=== PATIENT | female | born 1945 ===

== ENCOUNTER 2017-05-30 08:45 | Inpatient (IN) | payer MEDICARE, OTHER ==
[2017-05-30 08:49] VITALS: BMI 20.5
[2017-05-30 10:16] LABS: BASO # 0.1 K/uL (0.0-0.2); BASO % 0.6 % (0.0-2.0); EOS # 0.2 K/uL (0.0-0.7); EOS % 2.8 % (0.0-4.0); HEMATOCRIT 45.2 % (34.0-47.0); LYMPH # 2.2 K/uL (1.0-4.3); LYMPH % 25.9 % (20.0-40.0); MEAN CELL VOLUME 97.3 fl (81.0-99.0); MEAN CORPUSCULAR HGB CONC 33.9 g/dL (33.0-37.0); MEAN PLATELET VOLUME 10.2 fl (7.2-11.7); MONO # 1.1 K/uL (0.0-0.8); MONO % 12.8 % (0.0-10.0); NEUT # 4.9 K/uL (1.8-7.0); NEUT % 57.9 % (50.0-75.0); NRBC % 0.1 % (0.0-0.0); RED CELL DISTRIBUTION WIDTH 13.8 % (11.5-14.5); WHITE BLOOD COUNT 8.5 K/uL (4.8-10.8)
[2017-05-30 10:25] LABS: ALB/GLOB RATIO 1.3 (1.0-2.1); ALCOHOL SERUM < 10 mg/dl (0-10); ALKALINE PHOSPHATASE 68 U/L (38-126); ALT/SGPT 83 U/L (9-52); AST/SGOT 92 U/L (14-36); BILIRUBIN,TOTAL 0.7 mg/dl (0.2-1.3); BLOOD UREA NITROGEN 18 mg/dl (7-17); CALCIUM 9.5 mg/dL (8.4-10.2); CARBON DIOXIDE 27 mmol/L (22-30); CHLORIDE 102 mmol/L (98-107); GFR AFRICAN-AMERICAN > 60; GLUCOSE,RANDOM 81 mg/dL (65-105); POTASSIUM 4.4 MMOL/L (3.6-5.0); SODIUM 141 mmol/l (132-148); TOTAL PROTEIN 7.4 G/DL (6.3-8.2)
[2017-05-30] MEDS ORDERED: Alum-Mag Hydrox-Simethicone Susp (30 mL) PO PRN (13:29)
[2017-05-30] MEDS ORDERED: Magnesium Hydroxide Susp 30 ml UD PO PRN (13:29)
[2017-05-30] MEDS ORDERED: Bismuth Subsalicylate 262 mg/15 ml Sus (240 ml) PO PRN (13:29)
[2017-05-30 14:25] VITALS: O2SAT 99
[2017-05-31 06:34] LABS: T4 8.95 ug/dl (5.5-11.0)
[2017-05-31 07:24] LABS: IRON 105 ug/dL (37-170)
[2017-05-31] MEDS: Benzocaine/Menthol (Cepacol) Lozenge PO PRN (17:47)
[2017-05-31] MEDS: Dorzolamide 2% Ophth Soln OU SCH (17:48)
[2017-05-31] MEDS ORDERED: Influenza Vaccine(65YR UP)/PF 180 MCG/0.5 ML SYRINGE IM ONE (18:20)
[2017-05-31] MEDS ORDERED: Pneumococcal 23-Valent Vaccine IM ONE (18:21)
[2017-06-01] MEDS: Benzocaine/Menthol (Cepacol) Lozenge PO PRN (04:20)
[2017-06-01] MEDS: Dorzolamide 2% Ophth Soln OU SCH ×2 (08:32→17:35)
[2017-06-01] MEDS ORDERED: Levothyroxine 50 MCG TAB PO SCH (09:00)
[2017-06-02] MEDS: Levothyroxine 50 MCG TAB PO SCH (05:37)
[2017-06-02] MEDS: Dorzolamide 2% Ophth Soln OU SCH ×2 (08:49→17:29)
[2017-06-02 17:45] VITALS: RESP 18; TEMP 98.2
[2017-06-03] MEDS: Levothyroxine 50 MCG TAB PO SCH (05:43)
[2017-06-03] MEDS: Benzocaine/Menthol (Cepacol) Lozenge PO PRN (09:01)
[2017-06-03] MEDS: Dorzolamide 2% Ophth Soln OU SCH (09:02)
[2017-06-03 09:05] VITALS: BP 124/68; PULSE 65
== END 2017-06-03 12:00 | disposition home or self-care (01) | DRG 885 ==
LOC: H.ER 08:45 → H.EROBSV 09:00 → H.ERHOLD 13:26 → OBSVTOIN 13:26 → H.STEP 14:25
PROVIDERS: ADMIT Psychiatry & Neurology Psychiatry; ATTEND Psychiatry & Neurology Psychiatry
PROC: GZHZZZZ Group Psychotherapy (ICD-10-PCS; 2017-05-30)
PROC: 3E0234Z Introduction of Serum, Toxoid and Vaccine into Muscle, Percutaneous Approach (ICD-10-PCS; principal; 2017-05-31)
DX: F32.2 Major depressive disorder, single episode, severe without psychotic features (principal); F03.90 Unspecified dementia, unspecified severity, without behavioral disturbance, psychotic disturbance, mood disturbance, and anxiety; I10 Essential (primary) hypertension; E03.9 Hypothyroidism, unspecified; F41.1 Generalized anxiety disorder; Z88.6 Allergy status to analgesic agent; Z88.0 Allergy status to penicillin; Z23 Encounter for immunization; G47.30 Sleep apnea, unspecified; I25.10 Atherosclerotic heart disease of native coronary artery without angina pectoris; G47.00 Insomnia, unspecified; E78.5 Hyperlipidemia, unspecified; R53.1 Weakness; E78.00 Pure hypercholesterolemia, unspecified; M81.0 Age-related osteoporosis without current pathological fracture

== ENCOUNTER 2018-05-14 11:53 | Emergency (ER) | payer MEDICARE, OTHER ==
[2018-05-14 11:58] VITALS: BMI 19.2
[2018-05-14 12:00] VITALS: RESP 16; TEMP 97.8
--- NOTE | 2018-05-14 12:32 | ED PDOC ---
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 Patient reports anxiety due to chest pain. She denies shortness of breath. PMD: Vladimir Collier Past Medical History Reviewed: Historical Data, Nursing Documentation, Vital Signs Vital Signs: Last Vital Signs Temp 97.8 F 05/14/18 11:58 Pulse 65 05/14/18 11:58 Resp 16 05/14/18 11:58 BP 132/76 05/14/18 11:58 Pulse Ox 98 05/14/18 11:58 - Medical History PMH: Anxiety, Arthritis, Dementia, Depression, HTN, Hypercholesterolemia, Hypothyroidism, Osteoporosis Denies: Diabetes, Hepatitis, HIV, Chronic Kidney Disease, Seizures, Sexually Transmitted Disease - Surgical History Surgical History: Pacemaker, Tonsillectomy - Family History Family History: States: Unknown Family Hx - Home Medications Home Medications: Ambulatory Orders Medication Instructions Recorded Donepezil HCl [Aricept] 5 mg PO HS 05/14/18 Dorzolamide HCl [Dorzolamide HCl] 1 drop BOTHEYES BID 05/14/18 Levothyroxine [Synthroid] 0.05 mcg PO DAILY 05/14/18 Losartan [Cozaar] 25 mg PO DAILY 05/14/18 Memantine HCl [Memantine HCl] 10 mg PO HS 05/14/18 Pregabalin [Lyrica] 75 mg PO BID 05/14/18 Raloxifene [Evista] 60 mg PO DAILY 05/14/18 Sertraline HCl [Sertraline HCl] 150 mg PO DAILY 05/14/18 Simvastatin [Zocor] 20 mg PO DAILY 05/14/18 clonazePAM HALF TAB [Klonopin- 0.25 mg PO DAILY PRN 05/14/18 HALF TAB] - Allergies Allergies/Adverse Reactions: Allergies Allergy/AdvReac Type Severity Reaction Status Date / Time codeine Allergy ITCHING Verified 07/06/17 10:01 Penicillins Allergy ITCHING Verified 07/06/17 10:01 Review of Systems ROS Statement: Except As Marked, All Systems Reviewed And Found Negative Cardiovascular: Positive for: Chest Pain Respiratory: Negative for: Shortness of Breath Musculoskeletal: Positive for: Back Pain Physical Exam - Reviewed Nursing Documentation Reviewed: Yes Vital Signs Reviewed: Yes - Physical Exam Appears: Positive for: Non-toxic, No Acute Distress Head Exam: Positive for: ATRAUMATIC, NORMOCEPHALIC Skin: Positive for: Normal Color, Warm, Dry Eye Exam: Positive for: Normal appearance Cardiovascular/Chest: Positive for: Regular Rate, Rhythm. Negative for: Murmur Respiratory: Positive for: Normal Breath Sounds. Negative for: Wheezing, Respiratory Distress Back: Positive for: Normal Inspection Extremity: Positive for: Normal ROM. Negative for: Tenderness, Swelling Neurologic/Psych: Positive for: Alert, Oriented (x3) - Laboratory Results Result Diagrams: 05/14/18 12:45 05/14/18 12:45 - ECG O2 Sat by Pulse Oximetry: 98 (RA) Pulse Ox Interpretation: Normal Medical Decision Making Medical Decision Making: Time: 1226 Initial Plan: --EKG --Alcohol Serum --CMP --Urine drug screen --Troponin I --CBC --Chest x-ray 1312 Chest x-ray FINDINGS: LUNGS: No active pulmonary disease. PLEURA: No significant pleural effusion identified. No pneumothorax apparent. CARDIOVASCULAR: Atherosclerotic disease of the aorta is noted. OSSEOUS STRUCTURES: No significant abnormalities. VISUALIZED UPPER ABDOMEN: Normal. OTHER FINDINGS: Pacemaker wires are noted overlying the heart there appears to be a right pacemaker still in place. IMPRESSION: No active disease. ----- Scribe Attestation: Documented by Aleisha Villalobos, acting as a scribe for Eddie Solorio MD. Advised 24 hr obs for chest pain. Pt declines. Aware of risks including arrhthmia and [place] and Provider Scribe Attestation: All medical record entries made by the Scribe were at my direction and personally dictated by me. I have reviewed the chart and agree that the record accurately reflects my personal performance of the history, physical exam, medical decision making, and the department course for this patient. I have also personally directed, reviewed, and agree with the discharge instructions and disposition. Disposition - Clinical Impression Clinical Impression: Generalized anxiety disorder - Patient ED Disposition Is Patient to be Admitted: No - Disposition Referrals: Fransico Turner APN [Staff Provider] - Disposition: Routine/Home Disposition Time: 14:25 Condition: FAIR Instructions: Generalized Anxiety Disorder Forms: [facility] (Danish)
[2018-05-14 12:50] LABS: BASO # 0.1 K/uL (0.0-0.2); BASO % 0.9 % (0.0-2.0); EOS # 0.2 K/uL (0.0-0.7); EOS % 3.9 % (0.0-4.0); HEMOGLOBIN 13.9 g/dL (12.0-16.0); LYMPH # 1.3 K/uL (1.0-4.3); LYMPH % 20.7 % (20.0-40.0); MEAN CELL VOLUME 95.5 fl (81.0-99.0); MEAN CORPUSCULAR HGB CONC 33.5 g/dL (33.0-37.0); MEAN PLATELET VOLUME 9.1 fl (7.2-11.7); MONO # 0.8 K/uL (0.0-0.8); MONO % 12.5 % (0.0-10.0); NEUT # 3.9 K/uL (1.8-7.0); NRBC % 0.2 % (0.0-0.0); RBC 4.33 Mil/uL (3.80-5.20); RED CELL DISTRIBUTION WIDTH 13.6 % (11.5-14.5); WHITE BLOOD COUNT 6.2 K/uL (4.8-10.8)
[2018-05-14 12:59] LABS: ALBUMIN 3.6 g/dL (3.5-5.0); ALT/SGPT 25 U/L (9-52); AST/SGOT 31 U/L (14-36); BLOOD UREA NITROGEN 27 mg/dl (7-17); CALCIUM 9.6 mg/dL (8.4-10.2); GFR NON-AFRICAN AMERICAN > 60
[2018-05-14 13:08] LABS: BENZODIAZEPINES, UR NEGATIVE (NEGATIVE)
[2018-05-14 13:12] LABS: BARBITURATES, UR NEGATIVE (NEGATIVE); OPIATES, UR NEGATIVE (NEGATIVE); PHENCYCLIDINE, UR NEGATIVE (NEGATIVE)
--- NOTE | 2018-05-14 13:14 | RAD ---
Date of service: 05/14/2018 HISTORY: Chest pain COMPARISON: No prior. TECHNIQUE: Chest PA and lateral FINDINGS: LUNGS: No active pulmonary disease. PLEURA: No significant pleural effusion identified. No pneumothorax apparent. CARDIOVASCULAR: Atherosclerotic disease of the aorta is noted. OSSEOUS STRUCTURES: No significant abnormalities. VISUALIZED UPPER ABDOMEN: Normal. OTHER FINDINGS: Pacemaker wires are noted overlying the heart there appears to be a right pacemaker still in place. IMPRESSION: No active disease.
[2018-05-14 14:31] VITALS: BP 135/80; PULSE 75; O2SAT 100
--- NOTE | 2018-05-15 06:42 | CARD ---
APPROVED REPORT Date of service: 05/14/2018 EKG Measurement Heart [id number] <Conclusion> Atrial-sensed ventricular-paced rhythm Abnormal ECG
== END 2018-05-14 14:34 | disposition home or self-care (01) ==
LOC: H.ER 11:53
DX: F41.1 Generalized anxiety disorder (principal); R07.89 Other chest pain; E03.9 Hypothyroidism, unspecified; E78.00 Pure hypercholesterolemia, unspecified; F03.90 Unspecified dementia, unspecified severity, without behavioral disturbance, psychotic disturbance, mood disturbance, and anxiety; I10 Essential (primary) hypertension; Z95.0 Presence of cardiac pacemaker; Z88.0 Allergy status to penicillin
CPT/HCPCS: 71046; 80053; 84484; 85025; 93005; 99283; G0480

== ENCOUNTER 2018-08-04 11:06 | Inpatient (IN) | payer MEDICARE, OTHER ==
[2018-08-04 11:11] VITALS: BMI 19.0
--- NOTE | 2018-08-04 12:03 | ED PDOC ---
HPI: Psych/Substance Abuse Time Seen by Provider: 08/04/18 11:37 Chief Complaint (Nursing): Psychiatric Evaluation Chief Complaint (Provider): Crisis eval History Per: Patient Additional Complaint(s): 73 years old female with history of hypertension, anxiety and valvular disease presents to the ED, sent from [facility], for severe paranioa and anxiety. Pt denies suicidal/homicidal ideations. Offers no physical complaints at this time PMD: Vladimir Collier Past Medical History Reviewed: Historical Data, Nursing Documentation, Vital Signs Vital Signs: Last Vital Signs Temp 96.6 F L 08/04/18 11:11 Pulse 53 L 08/04/18 11:11 Resp 18 08/04/18 11:11 BP 152/64 H 08/04/18 11:11 Pulse Ox 97 08/04/18 11:11 - Medical History PMH: Anxiety, Arthritis, Dementia, Depression, HTN, Hypercholesterolemia, Hypothyroidism, Osteoporosis Denies: Diabetes, Hepatitis, HIV, Chronic Kidney Disease, Seizures, Sexually Transmitted Disease - Surgical History Surgical History: Pacemaker, Tonsillectomy - Family History Family History: States: Unknown Family Hx - Living Arrangements Living Arrangements: With Family - Social History Current smoker - smoking cessation education provided: No Ex-Smoker (has not smoked in the last 12 months): No Alcohol: None Drugs: Denies - Home Medications Home Medications: Ambulatory Orders Medication Instructions Recorded Losartan [Cozaar] 25 mg PO DAILY 05/14/18 Memantine HCl 10 mg PO QPM 05/14/18 Pregabalin [Lyrica] 75 mg PO Q12 05/14/18 Raloxifene [Evista] 60 mg PO DAILY 05/14/18 Sertraline HCl 150 mg PO DAILY 05/14/18 Simvastatin [Zocor] 20 mg PO DAILY 05/14/18 Aspirin [Ecotrin] 81 mg PO DAILY 08/04/18 Divalproex [Depakote DR TAB] 125 mg PO HS 08/04/18 Donepezil [Aricept] 10 mg PO QPM 08/04/18 Dorzolamide 2%/Timolol 0.5% 1 drop EACHEYE Q12 08/04/18 [Cosopt 2%-0.5% Opht] Levothyroxine [Synthroid] 50 mcg PO DAILY 08/04/18 Multivitamin [Multi-Vitamin Daily] 1 tab PO DAILY 08/04/18 Kanaranzi-3 Fatty Acids [Kanaranzi-3] 1,000 mg PO DAILY 08/04/18 Ubidecarenone [Coenzyme Q10] 1 cap PO DAILY 08/04/18 Vitamin B Complex [Super B-50 1 cap PO DAILY 08/04/18 Complex] clonazePAM [Klonopin] 0.25 mg PO BID 08/04/18 clonazePAM [Klonopin] 0.5 mg PO HS 08/04/18 - Allergies Allergies/Adverse Reactions: Allergies Allergy/AdvReac Type Severity Reaction Status Date / Time codeine Allergy ITCHING Verified 08/04/18 11:18 Penicillins Allergy ITCHING Verified 08/04/18 11:18 Review of Systems ROS Statement: Except As Marked, All Systems Reviewed And Found Negative Psych: Positive for: Anxiety Physical Exam - Reviewed Nursing Documentation Reviewed: Yes Vital Signs Reviewed: Yes - Physical Exam Appears: Positive for: Well, Non-toxic, No Acute Distress Head Exam: Positive for: ATRAUMATIC, NORMAL INSPECTION, NORMOCEPHALIC Skin: Positive for: Normal Color, Warm, DRY Eye Exam: Positive for: EOMI, Normal appearance, PERRL ENT: Positive for: Normal ENT Inspection Neck: Positive for: Normal, Painless ROM Cardiovascular/Chest: Positive for: Regular Rate, Rhythm Respiratory: Positive for: CNT, Normal Breath Sounds Gastrointestinal/Abdominal: Positive for: Normal Exam, Soft Back: Positive for: Normal Inspection Extremity: Positive for: Normal ROM Neurologic/Psych: Positive for: Alert, Oriented - Laboratory Results Result Diagrams: 08/04/18 12:24 08/04/18 12:24 - ECG O2 Sat by Pulse Oximetry: 97 Medical Decision Making Medical Decision Making: EKG interpreted and cleared by ED MD CXR: NAD, as read by PAWesly Labs resulted and reviewed with Pt who demonstrated full understanding K 5.1, BUN 24. Pt tolerating PO food tray/fluids without difficulty. Case discussed with ED MD, Dr. Rosenberg, who agreed Pt stable for admission at this time. See crisis eval notes Disposition - Clinical Impression Clinical Impression: Anxiety, Depression - Patient ED Disposition Is Patient to be Admitted: Yes - Disposition Disposition Time: 14:18 Condition: STABLE - Pt Status Changed To: Hospital Disposition Of: Inpatient - Admit Certification Admit to Inpatient:: After my assessment, the patient will require hospitalization for at least two midnights. This is because of the severity of symptoms shown, intensity of services needed, and/or the medical risk in this patient being treated as an outpatient.
[2018-08-04 12:41] LABS: BASO # 0.1 K/uL (0.0-0.2); EOS # 0.3 K/uL (0.0-0.7); EOS % 3.8 % (0.0-4.0); HEMOGLOBIN 14.6 g/dL (12.0-16.0); LYMPH # 1.5 K/uL (1.0-4.3); LYMPH % 20.3 % (20.0-40.0); MEAN CELL VOLUME 95.1 fl (81.0-99.0); MEAN CORPUSCULAR HEMOGLOBIN 30.9 pg (27.0-31.0); MEAN CORPUSCULAR HGB CONC 32.5 g/dL (33.0-37.0); MEAN PLATELET VOLUME 9.8 fl (7.2-11.7); MONO # 0.8 K/uL (0.0-0.8); MONO % 11.7 % (0.0-10.0); NEUT # 4.6 K/uL (1.8-7.0); NEUT % 63.2 % (50.0-75.0); RBC 4.71 Mil/uL (3.80-5.20); RED CELL DISTRIBUTION WIDTH 15.3 % (11.5-14.5); WHITE BLOOD COUNT 7.2 K/uL (4.8-10.8)
[2018-08-04 12:51] LABS: ALB/GLOB RATIO 1.1 (1.0-2.1); ALBUMIN 3.8 g/dL (3.5-5.0); ALT/SGPT 42 U/L (9-52); AST/SGOT 47 U/L (14-36); BLOOD UREA NITROGEN 24 mg/dl (7-17); GFR NON-AFRICAN AMERICAN > 60
[2018-08-04 13:11] LABS: SQUAMOUS EPITHIAL 1 /hpf (0-5); URINE BACTERIA RARE (<OCC); URINE BILIRUBIN NEGATIVE (NEGATIVE); URINE BLOOD NEGATIVE (NEGATIVE); URINE CLARITY CLOUDY (Clear); URINE COLOR AMBER (YELLOW); URINE GLUCOSE (UA) NEG (NEGATIVE); URINE LEUKOCYTE ESTERASE NEG Leu/uL (Negative); URINE PROTEIN NEGATIVE (NEGATIVE); URINE UROBILINOGEN 0.2-1.0 mg/dL (0.2-1.0)
[2018-08-04 13:26] LABS: BENZODIAZEPINES, UR NEGATIVE (NEGATIVE)
[2018-08-04 13:36] LABS: BARBITURATES, UR NEGATIVE (NEGATIVE); OPIATES, UR NEGATIVE (NEGATIVE); PHENCYCLIDINE, UR NEGATIVE (NEGATIVE)
--- NOTE | 2018-08-04 14:07 | RAD ---
Date of service: 08/04/2018 PROCEDURE: CHEST RADIOGRAPH, 1 VIEW HISTORY: med screening COMPARISON: 05/14/2018 FINDINGS: LUNGS: Clear. PLEURA: No pneumothorax or pleural fluid seen. CARDIOVASCULAR: Atherosclerotic calcifications identified primarily aortic arch. No radiographic findings to suggest acute or significant cardiovascular disease. Position/ configuration of pacemaker device: Satisfactory. OSSEOUS STRUCTURES: No significant abnormalities. VISUALIZED UPPER ABDOMEN: Normal. OTHER FINDINGS: None. IMPRESSION: No active disease.No significant interval change compared to the prior examination(s).
[2018-08-04 15:14] VITALS: O2SAT 100
[2018-08-04] MEDS ORDERED: Magnesium Hydroxide Susp 30 ml UD PO PRN (16:23)
[2018-08-04] MEDS ORDERED: Alum-Mag Hydrox-Simethicone Susp (30 mL) PO PRN (16:23)
[2018-08-04] MEDS ORDERED: Risperidone M tab 0.5MG PO PRN (16:28)
[2018-08-04] MEDS ORDERED: Pneumococcal 23-Valent Vaccine IM ONE (16:33)
--- NOTE | 2018-08-04 17:58 | CARD ---
APPROVED REPORT Date of service: 08/04/2018 EKG Measurement Heart [id number] <Conclusion> Atrial-sensed ventricular-paced rhythm Abnormal ECG
--- NOTE | 2018-08-04 18:04 | PCM.BM ---
Treatment Plan Problems - Problems identified on initial assessmt Problem 1 Date Initiated: 08/04/18 Time Initiated: 15:30 Status: Active Priority: 1 Depression Date Initiated: 08/04/18 Time Initiated: 15:30 Treatment assets and liabiliti Patient Assests: cooperative, good support system, negotiates basic needs
--- NOTE | 2018-08-04 18:09 | PCM.BM ---
<Christy Light E - Last Filed: 08/04/18 18:07> Treatment Plan Problems - Problems identified on initial assessmt Depression Date Initiated: 08/04/18 Time Initiated: 15:30 Assessment reference: NA Status: Active Priority: 2 Problem 2 Date Initiated: 08/04/18 Time Initiated: 15:30 Assessment reference: NA Status: Active Treatment assets and liabiliti Patient Assests: cooperative, good support system, negotiates basic needs Patient Liabilities: relationship conflicts, medical problems, imparied memory, language/speech - Milieu Protocol Maintain good personal hygiene: daily Encourage regular showers, daily Remind patient to perform daily oral care, daily Assist patient to perform ADL's Maintain personal safety: every shift Educate patient to report safety concerns to staff, every shift Monitor environment for contraband/sharps Medication safety: Monitor for expected outcome, potential side effects: every shift, Assess barriers to learning: every shift, Assess readiness for medication education: every shift <Lisa Haley - Last Filed: 08/07/18 11:17> - Diagnosis (1) Unspecified psychosis Status: Acute Interventions: Medication management, Individual and group therapy, Psychoeducation 08/07/18 11:19 (2) Unspecified mood [affective] disorder Status: Acute Interventions: Medication management, Individual and group therapy, Psychoeducation 08/07/18 11:19 (3) Dementia Status: Acute Interventions: Medication management, Individual and group therapy, Psychoeducation <Collette aRnd M - Last Filed: 08/07/18 14:40> Treatment Plan Problems - Problems identified on initial assessmt Altered Thought Process Date Initiated: 08/04/18 Time Initiated: 15:30 Assessment reference: NA Status: Active Priority: 1 Family Contact Family involvement: Family/SO is involved Family contact: Patient agrees to contact, Family has been contacted by patient, Telephone contact initiated by staff Family contact name: Gonzalo - spouse Family contacted how many times per week?: 2 - Outside Agency [facility] Care involvment: Information-sharing Agency contact name: Fransico Turner APN Agency contact number: [phone] Discharge/Continuing Care - Education Needs Education Needs: Family Medication, Family Diagnosis/Disease Process, Family Coping Skills, Family Placement options, Family Community resources, Family Activities of Daily Living, Family Nutrition, Family Health Practices/Safety, Family Personal Hygiene/Grooming, Family Aftercare Safety Plan, Patient Medication, Patient Diagnosis/Disease Process, Patient Coping Skills, Patient Placement options, Patient Community resources, Patient Activities of Daily Living, Patient Nutrition, Patient Health Practices/Safety, Patient Personal Hygiene/Grooming, Patient Aftercare Safety Plan - Discharge Discharge Criteria: Tolerates medication w/o severe side effects, Free of paranoid thoughts, Normal sleep pattern, Ability to care for self, Reduction of target symptoms Discharge to:: Home, With Family - Additional Comments 08/07/18 14:13 Pt seen and discussed in team meeting. Reason for hospitalization reviewed and discussed. Pt unable to state reason for hospitalization. Pt denied feeling depressed and anxious. Pt reported "I feel much better since being here." Pt also reported feeling "excited" in regards to the work that she has to do at home. When asked about her relationship with her , pt stated "not too good." Pt reported that her likes to "fight" a lot and she garcia snot. Pt denied physical abuse. Pt reported that she knows her loves her very much, but does not understand her and she does not understand him. Pt reported that her is moving furniture around the house in the middle of the night. Pt reported that she has witnessed her do this and when she asked him he denied it. Pt also reported that her is hiding her personal belongings making it very difficult for her to find them in the morning. Pt reported that she is a very organized person and knows where she keeps her things. Pt reported that lately her appetite has been poor. Pt currently weights 95 lbs. Denied being poisoned by her stating "he wouldn't do that he loves me." Bakery Clerk inquired about memory and pt reported "I'm forgetting some things but not completely." Pt reported that someone in the past has told her that she has early onset dementia, but cannot say who. Pt reported medication compliance at home. Pt's medical and social issues reviewed and discussed. Tx plan reviewed and discussed. Pt verbalized agreement to medication regimen and adjustments. Pt provided bid writer with verbal and written consent to call her , Gonzalo for collateral information. SW to continue to follow case. - Treatment Team Participation Discussed with Family/SO: No Was Patient/Family/SO present at Treatment Team Meeting: Yes
--- NOTE | 2018-08-04 18:42 | CP.PCM.CON ---
History of Present Illness - History of Present Illness History of Present Illness: 73 yo female with history of HTN, HLD and Hypothyroidism admitted to [facility] because of severe paranoia and anxiety. Review of Systems - Review of Systems All systems: reviewed and no additional remarkable complaints except (aside from those mentioned above, 12 point system review were negative by me) Past Patient History - Tetanus Immunizations Tetanus Immunization: Unknown - Past Social History Smoking Status: Never Smoked Chewing Tobacco Use: No Cigar Use: No Alcohol: None Drugs: Denies Home Situation {Lives}: With Family - CARDIAC Hx Cardiac Disorders: Yes Hx Hypercholesterolemia: Yes Hx Hypertension: Yes Other/Comment: Hx CAD - PULMONARY Hx Respiratory Disorders: No Hx Tuberculosis: No - NEUROLOGICAL HX Cerebrovascular Accident: No Hx Dementia: Yes Hx Seizures: No - HEENT Hx HEENT Problems: Yes Hx Glaucoma: Yes - RENAL Hx Chronic Kidney Disease: No - ENDOCRINE/METABOLIC Hx Hypothyroidism: Yes - HEMATOLOGICAL/ONCOLOGICAL Hx Blood Disorders: No Hx Cancer: No Hx Human Immunodeficiency Virus (HIV): No - INTEGUMENTARY Hx Dermatological Problems: No - MUSCULOSKELETAL/RHEUMATOLOGICAL Hx Arthritis: Yes Hx Falls: No Hx Osteoporosis: Yes - GASTROINTESTINAL Hx Gastrointestinal Disorders: No - GENITOURINARY/GYNECOLOGICAL Hx Genitourinary Disorders: No Hx Sexually Transmitted Disorders: No - PSYCHIATRIC Hx Physical Abuse: No Hx Sexual Abuse: No Hx Substance Use: No - SURGICAL HISTORY Hx Surgeries: Yes Hx Tonsillectomy: Yes - ANESTHESIA Hx Anesthesia: Yes Hx Anesthesia Reactions: No Hx Malignant Hyperthermia: No Meds Allergies/Adverse Reactions: Allergies Allergy/AdvReac Type Severity Reaction Status Date / Time codeine Allergy ITCHING Verified 08/04/18 11:18 Penicillins Allergy ITCHING Verified 08/04/18 11:18 - Medications Medications: Current Medications Acetaminophen (Tylenol 325mg Tab) 650 mg PO Q4 PRN PRN Reason: Pain, moderate (4-7) Al Hydrox/Mg Hydrox/Simethicone (Maalox Plus 30 Ml) 30 ml PO Q4 PRN PRN Reason: Dyspepsia Clonazepam (Klonopin) 0.25 mg PO BID [place] Clonazepam (Klonopin) 0.5 mg PO HS [place] Divalproex Sodium (Depakote Dr(*Bid*)) 125 mg PO HS [place] Donepezil HCl (Aricept) 10 mg PO QPM [place] Influenza Virus Vaccine (Afluria Quad (Pf) [id number]) 60 mcg IM .ONCE ONE Stop: 08/04/18 19:01 Lorazepam (Ativan) 0.5 mg PO Q6 PRN PRN Reason: Anixety/Agitation Stop: 08/18/18 16:24 Magnesium Hydroxide (Milk Of Magnesia) 30 ml PO HS PRN PRN Reason: Constipation Memantine (Namenda) 10 mg PO QPM [place] Risperidone (Risperdal M-Tab) 0.5 mg PO Q12 PRN PRN Reason: Psychosis Sertraline HCl (Zoloft) 150 mg PO DAILY [place] Physical Exam - Constitutional Appears: No Acute Distress - Head Exam Head Exam: ATRAUMATIC - Eye Exam Eye Exam: absent: Scleral icterus - ENT Exam ENT Exam: Mucous Membranes Moist - Neck Exam Neck exam: Negative for: Meningismus - Respiratory Exam Respiratory Exam: absent: Rales, Rhonchi, Wheezes, Respiratory Distress - Cardiovascular Exam Cardiovascular Exam: REGULAR RHYTHM, +S1, +S2 - GI/Abdominal Exam GI & Abdominal Exam: Soft. absent: Tenderness - Rectal Exam Rectal Exam: Deferred - Extremities Exam Extremities exam: Negative for: calf tenderness, pedal edema - Back Exam Back exam: NORMAL INSPECTION - Neurological Exam Neurological exam: Alert, Oriented x3 - Psychiatric Exam Psychiatric exam: Normal Affect - Skin Skin Exam: Dry, Intact Results - Vital Signs Recent Vital Signs: Last Vital Signs Temp 97.7 F 08/04/18 15:19 Pulse 53 L 08/04/18 15:19 Resp 18 08/04/18 15:19 BP 154/61 H 08/04/18 15:19 Pulse Ox 100 08/04/18 15:13 - Labs Result Diagrams: 08/04/18 12:24 08/04/18 12:24 Labs: Laboratory Results - last 24 hr 08/04/18 08/04/18 08/04/18 12:24 12:24 13:04 WBC 7.2 RBC 4.71 Hgb 14.6 Hct 44.8 MCV 95.1 MCH 30.9 MCHC 32.5 L RDW 15.3 H Plt Count 199 MPV 9.8 Neut % (Auto) 63.2 Lymph % (Auto) 20.3 [place] % (Auto) 11.7 H Eos % (Auto) 3.8 Baso % (Auto) 1.0 Neut # (Auto) 4.6 Lymph # (Auto) 1.5 [place] # (Auto) 0.8 Eos # (Auto) 0.3 Baso # (Auto) 0.1 Sodium 143 Potassium 5.1 H Chloride 106 Carbon Dioxide 29 Anion Gap 13 BUN 24 H Creatinine 0.8 Est GFR ( Amer) > 60 Est GFR (Non-Af Amer) > 60 Random Glucose 91 Calcium 10.0 Total Bilirubin 0.2 AST 47 H D ALT 42 Alkaline Phosphatase 100 Total Protein 7.3 Albumin 3.8 Globulin 3.5 Albumin/Globulin Ratio 1.1 Urine Color Urine Clarity Urine pH Ur Specific [place] Urine Protein Urine Glucose (UA) Urine Ketones Urine Blood Urine Nitrate Urine Bilirubin Urine Urobilinogen Ur Leukocyte Esterase Urine RBC (Auto) Urine Microscopic WBC Ur Squamous Epith Cells Urine Bacteria Urine Opiates Screen Negative Urine Methadone Screen Negative Ur Barbiturates Screen Negative Ur Phencyclidine Scrn Negative Ur Amphetamines Screen Negative U Benzodiazepines Scrn Negative U Oth Cocaine Metabols Negative U Cannabinoids Screen Negative Alcohol, Quantitative < 10 08/04/18 13:04 WBC RBC Hgb Hct MCV MCH MCHC RDW Plt Count MPV Neut % (Auto) Lymph % (Auto) [place] % (Auto) Eos % (Auto) Baso % (Auto) Neut # (Auto) Lymph # (Auto) [place] # (Auto) Eos # (Auto) Baso # (Auto) Sodium Potassium Chloride Carbon Dioxide Anion Gap BUN Creatinine Est GFR ( Amer) Est GFR (Non-Af Amer) Random Glucose Calcium Total Bilirubin AST ALT Alkaline Phosphatase Total Protein Albumin Globulin Albumin/Globulin Ratio Urine Color Xi Urine Clarity Cloudy Urine pH 5.0 Ur Specific [place] 1.021 Urine Protein Negative Urine Glucose (UA) Neg Urine Ketones Negative Urine Blood Negative Urine Nitrate Negative Urine Bilirubin Negative Urine Urobilinogen 0.2-1.0 Ur Leukocyte Esterase Neg Urine RBC (Auto) 1 Urine Microscopic WBC 1 Ur Squamous Epith Cells 1 Urine Bacteria Rare Urine Opiates Screen Urine Methadone Screen Ur Barbiturates Screen Ur Phencyclidine Scrn Ur Amphetamines Screen U Benzodiazepines Scrn U Oth Cocaine Metabols U Cannabinoids Screen Alcohol, Quantitative Assessment & Plan (1) Anxiety Status: Acute Comment: psyche is managing (2) HTN (hypertension) Status: Chronic Comment: BP stable. continue Losartan 25mg PO daily (3) Hypothyroid Status: Chronic Comment: follow up TSH level. continue Synthroid 50mcg PO daily
[2018-08-04] MEDS ORDERED: Influenza Vaccine (5 YR UP)/PF 60 MCG/0.5 ML SYR IM ONE (19:00)
[2018-08-04] MEDS: Divalproex 125 mg DR (BID formulation) PO SCH (21:04)
[2018-08-04] MEDS: Dorzolamide 2% Ophth Soln OU SCH (21:05)
[2018-08-05] MEDS: Levothyroxine 50 MCG TAB PO SCH (06:28)
[2018-08-05] MEDS: Dorzolamide 2% Ophth Soln OU SCH ×2 (09:06→21:05)
[2018-08-05 09:37] LABS: HDL CHOLESTEROL 88 MG/DL (30-70)
[2018-08-05 09:49] LABS: LDL CHOLESTEROL 107 mg/dL (0-129)
[2018-08-05 09:56] LABS: T4 9.15 ug/dl (5.5-11.0)
[2018-08-05 10:13] LABS: FERRITIN 48.9 ng/Ml (11.1-264.0)
[2018-08-05] MEDS: Omega-3-Acid Ethyl Esters 1 GM Cap PO SCH (12:20)
--- NOTE | 2018-08-05 13:09 | PCM.PSYCH ---
Initial Psychiatric Evaluation - Initial Psychiatric Evaluation Type of Admission: Voluntary Legal Status: Capacity Chief Complaint (in patient's own words): My does not treat me right History of Present Illness and Precipitating Events: pt is 73ys old female brought to ER by due to paranoid delusions, anxiety and depression, as per pt has not been compliant with medications pt has been increasingly paranoid believing that her is hiding her belongings, also is poisoning her , pt on evaluation anxious, tearful depressed, continues to verbalize paranoid delusions towards the , reported decreased sleep and decreased appetite, denied command hallucinations, denied S/H I collateral information systems supervisor spoke w/ the patients Nimisha, patients , for collateral information. Pablo described his as constantly anxious and nervous. Patient currently meets w/ Fransico Turner whom also diagnosed her w/ Early Dementia. A year ago, the patient was admitted at [facility]. As per , the pat ieednice has been accusing her of hiding his belongings. The patient has been paranoid, and has also accused him of poisoning her. The patient forgets where she places her belongings and blames him for hiding it. Nimisha stated that he has a son from another marriage, and a grandson from him. Nimisha stated that they both have an apartment, and the patient feels that he wants her to so he can give the apartment to his son. The patient isnt compliant with her medications, since she doesnt take it at the appropriate time. Current Medications: Active Medications Generic Name Dose Route Start Last Admin Trade Name Anderson PRN Reason Stop Dose Admin Acetaminophen 650 mg 08/04/18 16:23 Tylenol 325mg Tab PO Q4 PRN Pain, moderate (4-7) Al Hydrox/Mg Hydrox/Simethicone 30 ml 08/04/18 16:23 Maalox Plus 30 Ml PO Q4 PRN Dyspepsia Aspirin 81 mg 08/05/18 09:00 08/05/18 09:04 Ecotrin PO 81 mg DAILY BRAXTON Administration Clonazepam 0.25 mg 08/04/18 17:00 08/05/18 09:03 Klonopin PO 0.25 mg BID BRAXTON Administration Clonazepam 0.5 mg 08/04/18 22:00 08/04/18 21:04 Klonopin PO 0.5 mg HS BRAXTON Administration Divalproex Sodium 125 mg 08/04/18 22:00 08/04/18 21:04 Lovely Lowry(*Bid*) PO 125 mg HS BRAXTON Administration Donepezil HCl 10 mg 08/04/18 18:00 08/04/18 21:05 Aricept PO 10 mg QPM BRAXTON Administration Dorzolamide HCl 1 drop 08/04/18 21:00 08/05/18 09:06 Trusopt OU 1 drop Q12 BRAXTON Administration Levothyroxine Sodium 50 mcg 08/05/18 06:30 08/05/18 06:28 Synthroid PO 50 mcg DAILY@0630 BRAXTON Administration Lorazepam 0.5 mg 08/04/18 16:23 Ativan PO 08/18/18 16:24 Q6 PRN Anixety/Agitation Losartan Potassium 25 mg 08/05/18 09:00 Cozaar PO DAILY BRAXTON Magnesium Hydroxide 30 ml 08/04/18 16:23 Milk Of Magnesia PO HS PRN Constipation Memantine 10 mg 08/04/18 18:00 08/04/18 21:05 Namenda PO 10 mg QPM BRAXTON Administration Dnqfw-[id number] Ethyl Esters 1 gm 08/05/18 09:00 Lovaza PO DAILY BRAXTON Risperidone 0.5 mg 08/04/18 16:28 Risperdal M-Tab PO Q12 PRN Psychosis Sertraline HCl 150 mg 08/05/18 09:00 08/05/18 09:14 Zoloft PO 150 mg DAILY BRAXTON Administration Timolol Maleate 1 drop 08/05/18 09:00 08/05/18 09:05 Timoptic 0.5% Ophth Soln OU 1 drop TID BRAXTON Administration Past Psychiatric History - Past Psychiatric History Explanation of prior treatment: ONE PREVIOUS HOSPITALIZATION, PARTIAL COMPLIANCE WITH TREATMENT Pertinent Medical Hx (Current Medical&Sleep Prob, Allergies): Allergies Allergy/AdvReac Type Severity Reaction Status Date / Time codeine Allergy ITCHING Verified 08/04/18 11:18 Penicillins Allergy ITCHING Verified 08/04/18 11:18 Losartan [Cozaar] 25 mg PO DAILY 05/14/18 Memantine HCl 10 mg PO QPM 05/14/18 Pregabalin [Lyrica] 75 mg PO Q12 05/14/18 Raloxifene [Evista] 60 mg PO DAILY 05/14/18 Sertraline HCl 150 mg PO DAILY 05/14/18 Simvastatin [Zocor] 20 mg PO DAILY 05/14/18 Aspirin [Ecotrin] 81 mg PO DAILY 08/04/18 Divalproex [Depakote DR TAB] 125 mg PO HS 08/04/18 Donepezil [Aricept] 10 mg PO QPM 08/04/18 Dorzolamide 2%/Timolol 0.5% [Cosopt 2%-0.5% Opht] 1 drop EACHEYE Q12 08/04/18 Levothyroxine [Synthroid] 50 mcg PO DAILY 08/04/18 Multivitamin [Multi-Vitamin Daily] 1 tab PO DAILY 08/04/18 Orondo-3 Fatty Acids [Orondo-3] 1,000 mg PO DAILY 08/04/18 Ubidecarenone [Coenzyme Q10] 1 cap PO DAILY 08/04/18 Vitamin B Complex [Super B-50 Complex] 1 cap PO DAILY 08/04/18 clonazePAM [Klonopin] 0.25 mg PO BID 08/04/18 clonazePAM [Klonopin] 0.5 mg PO HS 08/04/18 Mental Status Examination - Personal Presentation Personal Presentation: Looks stated age - Affect Affect: Constricted, Depressed - Motor Activity Motor Activity: Psychomotor Agitation - Reliability in Providing Information Reliability in Providing Information: Poor, due to alteration in thoughts, Poor, due to altered mood - Speech Speech: Tangential - Mood Mood: Depressed, Anxious - Formal Thought Process Formal Thought Process: Delusions, Paranoia, Circumstantial - Obsessions/Compulsions Obsessions: No Compulsions: No - Cognitive Functions Orientation: Person, Place Abstract Thinking: Proctor Judgement: Imparied, as evidence by: Lack of insight into illness - Risk Risk: Elopement, Diminished functioning - Strength & Assets Inventory Strength & Assets Inventory: Family support - Limitations Additional comments: PARTIAL COMPLIANCE DSM 5 DX - DSM 5 DSM 5 Diagnosis: DEUSIONAL DISORDER PARANOID TYPE DEPRESSION ANXIETY - Recommended/Plan of Treatment Treatment Recommendations and Plan of Treatment: continue with zoloft depakote and risperidone monitor patient for psychopharmacological effects and side effect profile group and supportive therapy
[2018-08-05 17:38] LABS: FOLATE > 20.0 ng/mL
[2018-08-05] MEDS: Divalproex 125 mg DR (BID formulation) PO SCH (21:06)
[2018-08-06] MEDS: Levothyroxine 50 MCG TAB PO SCH (06:12)
[2018-08-06] MEDS: Omega-3-Acid Ethyl Esters 1 GM Cap PO SCH (08:18)
[2018-08-06] MEDS: Dorzolamide 2% Ophth Soln OU SCH ×2 (08:21→21:11)
--- NOTE | 2018-08-06 11:06 | PCM.PYCHPN ---
Psychiatric Progress Note - Psychiatric Progress Note Patient seen today, length of contact: PT EVALUATED DISCUSSED WITH TEAM CHART REVIEWED Patient Chief Complaint: I FEEL ANXIOUS WHEN i THINK ABOUT MY Problems Identified/Issues Discussed: pt evaluated , seen in day room, presenting with anxious mood and affect, continues to verbalize paranoid delusions towards , no reported side effcts of medications, denied command hallucinations, denied S/H I Medical Problems: ONE PREVIOUS HOSPITALIZATION, PARTIAL COMPLIANCE WITH TREATMENT DSM 5 Symptoms Update: DELUSIONAL DISORDER DEPRESSION GENERALIZED ANXIETY Medication Change: No Medical Record Reviewed: Yes Mental Status Examination - Cognitive Function Orientation: Person, Place, Situation Memory: Impaired, Recent Attention: WNL Concentration: Poor Association: WNL Fund of Knowledge: Poor Decription of patient's judgement and insights: POOR INSIGHT AND JUDGMENT - Mood Mood: Depressed, Anxious - Affect Affect: Constricted, Depressed - Speech Additional comments: OVERPRODUCTIVE - Formal Thought Process Formal Thought Process: Delusions, Paranoia, Circumstantial - Suicidal Ideation Suicidal Ideation: No - Homicidal Ideation Homicidal Ideation: No Goal/Treatment Plan - Goal/Treatment Plan Need for Continued Stay: Severe depression anxiety, Discharge may exacerbated symptoms Progress Toward Problem(s) and Goals/Treatment Plan: continue with zoloft depakote and risperidone monitor patient for psychopharmacological effects and side effect profile group and supportive therapy
[2018-08-06] MEDS: Divalproex 125 mg DR (BID formulation) PO SCH (21:10)
[2018-08-07] MEDS: Levothyroxine 50 MCG TAB PO SCH (06:06)
[2018-08-07 06:53] LABS: ALB/GLOB RATIO 1.1 (1.0-2.1); ALT/SGPT 37 U/L (9-52); AST/SGOT 40 U/L (14-36); BLOOD UREA NITROGEN 25 mg/dl (7-17); CALCIUM 9.5 mg/dL (8.4-10.2); GFR NON-AFRICAN AMERICAN > 60
[2018-08-07] MEDS: Omega-3-Acid Ethyl Esters 1 GM Cap PO SCH (08:03)
[2018-08-07] MEDS: Dorzolamide 2% Ophth Soln OU SCH ×2 (08:04→21:08)
--- NOTE | 2018-08-07 11:22 | PCM.PYCHPN ---
Psychiatric Progress Note - Psychiatric Progress Note Patient seen today, length of contact: Pt evaluated, case discussed w/ team, chart reviewed Patient Chief Complaint: "My keeps moving the furniture." Problems Identified/Issues Discussed: Pt is currently calm and cooperative. A + O x 1. She has poor insight into her cognitive deficits. She continues to have poor sleep and appetite. She continues to have paranoia towards her . Collateral history obtained from her , who reports that the patient was not compliant with medications prior to admission due to concerns that she was being poisoned. Medication Change: Yes (Taper Klonopin, Stop Zoloft, Start Remeron, Start Risperdal) Medical Record Reviewed: Yes Consults ordered or reviewed: Medicine consult Mental Status Examination - Cognitive Function Orientation: Person, Place, Situation Memory: Impaired, Recent Attention: WNL Concentration: Poor Association: Loose Fund of Knowledge: Poor Decription of patient's judgement and insights: Poor I/J - Mood Mood: Depressed, Anxious - Affect Affect: Constricted - Speech Speech: Soft - Formal Thought Process Formal Thought Process: Delusions, Paranoia, Circumstantial Psychotic Thoughts and Behaviors: +Paranoia - Suicidal Ideation Suicidal Ideation: No - Homicidal Ideation Homicidal Ideation: No Goal/Treatment Plan - Goal/Treatment Plan Need for Continued Stay: Severe depression anxiety, Discharge may exacerbated symptoms Progress Toward Problem(s) and Goals/Treatment Plan: Psychosis NOS r/o delusional disorder vs MDD w/ Psychosis; Mood Disorder NOS; Dementia -Patient was not compliant with medications prior to admission, will stop Zoloft and switch to Remeron 7.5 mg PO HS; start Risperdal 0.5 mg PO HS; stop Depakote; taper Klonopin -Continue Aricept and Namenda -Individual and group therapy -Medicine consult -Psychoeducation -Disposition planning Estimated Date of D/C: 08/11/18
[2018-08-07] MEDS ORDERED: Risperidone M tab 0.5MG PO SCH ×2 (21:00→22:00)
[2018-08-08] MEDS: Levothyroxine 50 MCG TAB PO SCH (06:04)
[2018-08-08] MEDS: Omega-3-Acid Ethyl Esters 1 GM Cap PO SCH (08:08)
[2018-08-08] MEDS: Dorzolamide 2% Ophth Soln OU SCH ×2 (08:09→21:16)
--- NOTE | 2018-08-08 08:48 | PCM.PYCHPN ---
Psychiatric Progress Note - Psychiatric Progress Note Patient seen today, length of contact: Pt evaluated, case discussed w/ team, chart reviewed Patient Chief Complaint: "My keeps moving the furniture." Problems Identified/Issues Discussed: Pt is currently calm and cooperative. A + O x 1. She continues to have poor insight into her cognitive deficits. She reports improvement in appetite. She continues to have paranoia towards her . Medication Change: Yes (Increase Risperdal) Medical Record Reviewed: Yes Consults ordered or reviewed: Medicine consult Mental Status Examination - Cognitive Function Orientation: Person, Place, Situation Memory: Impaired, Recent Attention: WNL Concentration: Poor Association: Loose Fund of Knowledge: Poor Decription of patient's judgement and insights: Poor I/J - Mood Mood: Anxious - Affect Affect: Constricted - Speech Speech: Soft - Formal Thought Process Formal Thought Process: Delusions, Paranoia, Circumstantial Psychotic Thoughts and Behaviors: +Paranoia - Suicidal Ideation Suicidal Ideation: No - Homicidal Ideation Homicidal Ideation: No Goal/Treatment Plan - Goal/Treatment Plan Need for Continued Stay: Severe depression anxiety, Discharge may exacerbated symptoms Progress Toward Problem(s) and Goals/Treatment Plan: Psychosis NOS r/o delusional disorder vs MDD w/ Psychosis; Mood Disorder NOS; Dementia -Continue Remeron 7.5 mg PO HS -Continue Klonopin 0.5 mg PO HS -Increase Risperdal to 1 mg PO HS -Continue Aricept and Namenda -Individual and group therapy -Medicine consult -Psychoeducation -Disposition planning Estimated Date of D/C: 08/11/18
[2018-08-08] MEDS: Risperidone M tab 1 MG PO SCH ×2 (21:18→21:53)
[2018-08-09] MEDS: Levothyroxine 50 MCG TAB PO SCH (06:01)
[2018-08-09] MEDS: Omega-3-Acid Ethyl Esters 1 GM Cap PO SCH (08:22)
[2018-08-09] MEDS: Dorzolamide 2% Ophth Soln OU SCH ×2 (08:26→21:12)
--- NOTE | 2018-08-09 09:57 | PCM.PYCHPN ---
Psychiatric Progress Note - Psychiatric Progress Note Patient seen today, length of contact: Pt evaluated, case discussed w/ team, chart reviewed Patient Chief Complaint: "My keeps moving the furniture." Problems Identified/Issues Discussed: Pt is currently calm and cooperative. She refused medications last night because she believed she already took them. A + O x 1. She continues to have poor insight into her cognitive deficits. She reports improvement in appetite and sleep. She continues to have paranoia towards her . Medication Change: Yes (Increase Risperdal) Medical Record Reviewed: Yes Consults ordered or reviewed: Medicine consult Mental Status Examination - Cognitive Function Orientation: Person, Place, Situation Memory: Impaired, Recent Attention: Poor Concentration: Poor Association: Loose Fund of Knowledge: Poor Decription of patient's judgement and insights: Poor I/J - Mood Mood: Anxious - Affect Affect: Constricted - Speech Speech: Soft - Formal Thought Process Formal Thought Process: Delusions, Paranoia, Circumstantial Psychotic Thoughts and Behaviors: +Paranoia - Suicidal Ideation Suicidal Ideation: No - Homicidal Ideation Homicidal Ideation: No Goal/Treatment Plan - Goal/Treatment Plan Need for Continued Stay: Discharge may exacerbated symptoms, Severe functional impairment Progress Toward Problem(s) and Goals/Treatment Plan: Psychosis NOS r/o delusional disorder vs MDD w/ Psychosis; Mood Disorder NOS; Dementia -Continue Remeron 7.5 mg PO HS -Continue Klonopin 0.5 mg PO HS -Increase Risperdal to 1 mg PO HS -Continue Aricept and Namenda -Individual and group therapy -Medicine consult -Psychoeducation -Disposition planning Estimated Date of D/C: 08/11/18
[2018-08-09] MEDS ORDERED: Risperidone M tab 1 MG PO ONE (10:45)
[2018-08-09] MEDS ORDERED: Risperidone M tab 0.5MG PO SCH (22:00)
[2018-08-10] MEDS: Levothyroxine 50 MCG TAB PO SCH (06:06)
[2018-08-10] MEDS: Dorzolamide 2% Ophth Soln OU SCH ×2 (09:02→21:14)
[2018-08-10] MEDS: Omega-3-Acid Ethyl Esters 1 GM Cap PO SCH (09:28)
[2018-08-10] MEDS ORDERED: Risperidone M tab 1 MG PO ONE (10:00)
--- NOTE | 2018-08-10 10:30 | PCM.PYCHPN ---
Psychiatric Progress Note - Psychiatric Progress Note Patient seen today, length of contact: Pt evaluated, case discussed w/ team, chart reviewed Patient Chief Complaint: "I'm getting better." Problems Identified/Issues Discussed: Pt is currently calm and cooperative. She is compliant with medications. She reports improved sleep/appetite. She continues to have chronic cognitive deficits. She is less paranoid towards her and feels safe returning home with him. Medication Change: No Medical Record Reviewed: Yes Consults ordered or reviewed: Medicine consult Mental Status Examination - Cognitive Function Orientation: Person, Place, Situation Memory: Impaired, Recent Attention: Poor Concentration: Poor Association: Loose Fund of Knowledge: Poor Decription of patient's judgement and insights: Poor I/J - Mood Mood: Anxious - Affect Affect: Broad - Speech Speech: Soft - Formal Thought Process Formal Thought Process: Paranoia, Circumstantial Psychotic Thoughts and Behaviors: +Mild Paranoia - Suicidal Ideation Suicidal Ideation: No - Homicidal Ideation Homicidal Ideation: No Goal/Treatment Plan - Goal/Treatment Plan Need for Continued Stay: Severe functional impairment Progress Toward Problem(s) and Goals/Treatment Plan: Psychosis NOS r/o delusional disorder vs MDD w/ Psychosis; Mood Disorder NOS; Dementia -Continue Remeron 7.5 mg PO HS -Continue Klonopin 0.5 mg PO HS -Continue Risperdal 1 mg PO HS -Continue Aricept and Namenda -Individual and group therapy -Medicine consult -Psychoeducation -Disposition planning-patient is improving clinically, will likely discharge tomorrow under the care of her Estimated Date of D/C: 08/11/18
--- NOTE | 2018-08-10 12:01 | CP.PCM.PN ---
Subjective - Date & Time of Evaluation Date of Evaluation: 08/10/18 Time of Evaluation: 10:00 - Subjective Subjective: Informed by RN that pt complained of Low Back pain. Pt seen and examined, started having low back pain since last night. Denies fall no neuro deficit however ambulation difficult due to pain\ VS stable no spinal tenderness no focal neuro deficit A/P: Low Back Pain likely musculoskeletal Pain - start Lidoderm patch - Tylenol prn for pain - Lumbar Xray Objective - Vital Signs/Intake and Output Vital Signs (last 24 hours): Temp Pulse Resp BP Pulse Ox 97.7 F 63 18 137/69 100 08/10/18 06:00 08/10/18 06:00 08/10/18 06:00 08/10/18 06:00 08/04/18 15:13 - Medications Medications: Current Medications Acetaminophen (Tylenol 325mg Tab) 650 mg PO Q4 PRN PRN Reason: Pain, moderate (4-7) Last Admin: 08/10/18 09:36 Dose: 650 mg Al Hydrox/Mg Hydrox/Simethicone (Maalox Plus 30 Ml) 30 ml PO Q4 PRN PRN Reason: Dyspepsia Aspirin (Ecotrin) 81 mg PO DAILY [facility]END[facility] TO [facility] Last Admin: 08/10/18 09:28 Dose: 81 mg Clonazepam (Klonopin) 0.5 mg PO HS [facility] Last Admin: 08/09/18 21:09 Dose: 0.5 mg Donepezil HCl (Aricept) 10 mg PO QPM [facility] Last Admin: 08/09/18 17:35 Dose: 10 mg Dorzolamide HCl (Trusopt) 1 drop OU Q12 [facility]END[facility] Last Admin: 08/10/18 09:02 Dose: 1 drop Levothyroxine Sodium (Synthroid) 50 mcg PO DAILY@0630 [facility] Last Admin: 08/10/18 06:06 Dose: 50 mcg Lidocaine (Lidoderm) 1 ea TD DAILY [facility]END[facility] Lorazepam (Ativan) 0.5 mg PO Q6 PRN PRN Reason: Anixety/Agitation Stop: 08/18/18 16:24 Losartan Potassium (Cozaar) 25 mg PO DAILY [facility] Last Admin: 08/09/18 08:22 Dose: 25 mg Magnesium Hydroxide (Milk Of Magnesia) 30 ml PO HS PRN PRN Reason: Constipation Memantine (Namenda) 10 mg PO QPM PEND[facility] S[facility] TO [facility] Last Admin: 08/09/18 17:35 Dose: 10 mg Mirtazapine (Remeron) 7.5 mg PO HS BRAXTON Last Admin: 08/09/18 21:09 Dose: 7.5 mg Gflhd-1-Efow Ethyl Esters (Lovaza) 1 gm PO DAILY BRAXTON Last Admin: 08/10/18 09:28 Dose: 1 gm Risperidone (Risperdal Tab) 1 mg PO HS PENDING SALE TO [facility] Timolol Maleate (Timoptic 0.5% [facility]) 1 drop OU TID PEND[facility] Last Admin: 08/10/18 09:03 Dose: 1 drop - Labs Labs: 08/04/18 12:24 08/07/18 06:30
[2018-08-10] MEDS: Lidocaine 5% Patch TD SCH (12:54)
--- NOTE | 2018-08-10 15:47 | RAD ---
Date of service: 08/10/2018 PROCEDURE: Radiographs of the Lumbar Spine. HISTORY: low back pain COMPARISON: No prior. FINDINGS: BONES: Normal alignment. No listhesis. No fracture. Diffuse osteopenia suggests osteoporosis. Limited multilevel mid to inferior lumbar spondylosis. No spondylolysis appreciated. DISC SPACES: Mild disc height loss L4-5 with remaining intervertebral disc spaces otherwise unremarkable. OTHER FINDINGS: None. IMPRESSION: Mild multilevel degenerative spondylosis without fracture or spondylolisthesis appreciable. Diffuse osteopenia suggests osteoporosis.
[2018-08-11 06:43] VITALS: RESP 20; TEMP 97.3
--- NOTE | 2018-08-11 08:27 | PCM.PYCHDC ---
Mental Status Examination - Mental Status Examination Orientation: Person Memory: Impaired (Chronic deficits in memory, attention, concentration, association ) Mood: Neutral Affect: Broad Speech: Appropriate Attention: Poor Concentration: Poor Association: Loose Fund of Knowledge: Poor Formal Thought Process: Loosening of associations Description of patient's judgement and insight: Chronic limitations in insight/judgment due to dementia Psychotic Thoughts and Behaviors: Denies acute paranoia/AH/VH Suicidal Ideation: No Current Homicidal Ideation?: No Discharge Summary - Discharge Note Reason for Hospitalization: As per initial HPI: pt is 73ys old female brought to ER by due to paranoid delusions, anxiety and depression, as per pt has not been compliant with medications pt has been increasingly paranoid believing that her is hiding her belongings, also is poisoning her , pt on evaluation an xious, tearful depressed, continues to verbalize paranoid delusions towards the , reported decreased sleep and decreased appetite, denied command hallucinations, denied S/H I collateral information Elmigior (patient's hsuband) described his as constantly anxious and nervous. Patient currently meets w/ Fransico Turner whom also diagnosed her w/ Early Dementia. A year ago, the patient was admitted at [facility]. As per , the patient has been accusing her of hiding his belongings. The patient has been paranoid, and has also accused him of poisoning her. The patient forgets where she places her belongings and blames him for hiding it. Elmijavido stated that he has a son from another marriage, and a grandson from him. Nimisha stated that they both have an apartment, and the patient feels that he wants her to so he can give the apartment to his son. The patient isnt compliant with her medications, since she doesnt take it at the appropriate time. Consultations:: List each consultation separately and include: 1. Reason for request. 2. Findings. 3. Follow-up Consultations: Medicine consult Summary of Hospital Course include:: 1. Description of specific treatment plan utilized for patients during their course of treatmen. 2. Summarize the time- course for resolution of acute symptoms and/or regressed behaviors. 3. Describe issues identified and worked on during hospitalization. 4. Describe medication utilized. 5. Describe medical problems identified and treated. 6. Reassessment of suicide risk Summary of Hospital Course: Patient was admitted to the psychiatry unit. Individual and group therapy were provided. Patient was stabilized on Risperdal 1 mg PO HS, Klonopin 0.5 mg PO HS (tapered down, was previously at a higher dose), Remeron 7.5 mg PO HS, Aricept 10 mg PO HS, Namenda 10 mg PO HS. She denies acute depression/anxiety/paranoia and is psychiatrically stable for discharge. Patient will be discharged under the care of her . - Diagnosis (1) Unspecified psychosis Current Visit: Yes Status: Acute (2) Unspecified mood [affective] disorder Current Visit: Yes Status: Acute (3) Dementia Current Visit: No Status: Acute - Final Diagnosis (DSM 5) Condition upon Discharge: STABLE DSM 5: Psychosis NOS, Depressive Disorder, Dementia Disposition: HOME/ ROUTINE Follow-up Treatment Plan: Psychosis NOS r/o delusional disorder vs MDD w/ Psychosis; Depressive Disorder; Dementia -Continue Remeron 7.5 mg PO HS -Continue Klonopin 0.5 mg PO HS -Continue Risperdal 1 mg PO HS -Continue Aricept and Namenda -Individual and group therapy -Medicine consult -Psychoeducation -Discharge under the care of her Prescriptions/Medication Reconciliation: clonazePAM [Klonopin] 0.5 mg PO HS #30 tab Donepezil [Aricept] 10 mg PO HS #30 tab Lidocaine 5% [Lidoderm] 1 ea TD DAILY #30 patch Memantine [Namenda] 10 mg PO QPM #30 tab Mirtazapine [Remeron] 7.5 mg PO HS #30 tab risperiDONE [RisperDAL Tab] 1 mg PO HS #30 tab - Smoking Cessation Smoking Cessation Medication prescribed: No Reason for not providing: Not indicated - Antipsychotic Medications Pt discharged on 2 or more routine antipsychotic medications: No
[2018-08-11] MEDS: Lidocaine 5% Patch TD SCH (08:54)
[2018-08-11] MEDS: Omega-3-Acid Ethyl Esters 1 GM Cap PO SCH (08:57)
[2018-08-11] MEDS: Levothyroxine 50 MCG TAB PO SCH (08:58)
[2018-08-11 08:59] VITALS: BP 120/77; PULSE 75
[2018-08-11] MEDS: Dorzolamide 2% Ophth Soln OU SCH (08:59)
== END 2018-08-11 11:00 | disposition home or self-care (01) | DRG 885 ==
LOC: H.ER 11:06 → H.ERHOLD 13:50 → H.STEP 15:25
PROVIDERS: ADMIT Psychiatry & Neurology Psychiatry; ATTEND Psychiatry & Neurology Psychiatry
PROC: GZHZZZZ Group Psychotherapy (ICD-10-PCS; principal; 2018-08-04)
PROC: GZ58ZZZ Individual Psychotherapy, Cognitive-Behavioral (ICD-10-PCS; 2018-08-04)
PROC: 3E02340 Introduction of Influenza Vaccine into Muscle, Percutaneous Approach (ICD-10-PCS; 2018-08-05)
DX: F32.3 Major depressive disorder, single episode, severe with psychotic features (principal); F03.90 Unspecified dementia, unspecified severity, without behavioral disturbance, psychotic disturbance, mood disturbance, and anxiety; F41.1 Generalized anxiety disorder; I25.10 Atherosclerotic heart disease of native coronary artery without angina pectoris; E03.9 Hypothyroidism, unspecified; E78.5 Hyperlipidemia, unspecified; E78.00 Pure hypercholesterolemia, unspecified; I10 Essential (primary) hypertension; M81.0 Age-related osteoporosis without current pathological fracture; Z91.14 Patient's other noncompliance with medication regimen; M19.90 Unspecified osteoarthritis, unspecified site; Z23 Encounter for immunization; Z79.82 Long term (current) use of aspirin; Z88.6 Allergy status to analgesic agent; Z88.0 Allergy status to penicillin